=== PATIENT | female | born 1950 | race Caucasian/White ===

== ENCOUNTER 2018-04-30 20:01 | Emergency (ER) | payer MEDICARE, MEDICAID ==
[~2018-04-30] VITALS: Ht 157.4 cm; Wt 83.5 kg
[~2018-04-30 20:01] MED LIST: AMOXICILLIN500 M2 PO; ASPIR 8181 MG PO; BACTRIM DS 8001 TA1 PO; COZAAR50 MG PO; GLIPIZIDE2.5 MG PO; GLIPIZIDE5 MG PO; LEVAQUIN750 M1 PO; LOPRESSOR100 MG PO; METFORMIN500 MG PO; METOPROLOL100 MG PO; NORVASC2.5 MG PO; TESSALON PERLE100 M1 PO; TRAD5TAB1 PO
== END 2018-04-30 20:20 | disposition home or self-care (01) ==
LOC: ED 20:01
DX: H11.31 Conjunctival hemorrhage, right eye (principal); K08.89 Other specified disorders of teeth and supporting structures; E11.9 Type 2 diabetes mellitus without complications; Z88.6 Allergy status to analgesic agent; Z79.82 Long term (current) use of aspirin; Z79.899 Other long term (current) drug therapy

== ENCOUNTER → 2018-07-13 | Outpatient (CLI) | payer MEDICARE, MEDICAID ==
[2018-07-13 10:39] LABS: BILIRUBIN NEGATIVE (NEGATIVE); BLOOD TRACE-LYSED (NEGATIVE); CLARITY SL CLOUDY (CLEAR); COLOR YELLOW (YELLOW); GLUCOSE 3+ (NEGATIVE); KETONE NEGATIVE (NEGATIVE); LEUKO ESTERASE NEGATIVE (NEGATIVE); NITRITE NEGATIVE (NEGATIVE); PH 5.5 (5.0-9.0); UROBILINOGEN 0.2 E.U./dl (0.2-1.0)
[2018-07-13 10:47] LABS: CREATININE 1.32 mg/dL (0.55-1.02); POTASSIUM 4.3 mmol/L (3.5-5.1)
[2018-07-13 10:54] LABS: FREE T4 1.16 ng/dl (0.76-1.46); THYROID STIM HORMONE (HS) 2.41 uIU/ml (0.358-4.75)
[2018-07-13 12:47] LABS: BACTERIA 2+; EPITHELIAL CELLS 20-30
== END | disposition home or self-care (01) ==
LOC: LAB 09:44
PROVIDERS: Internal Medicine
DX: E11.65 Type 2 diabetes mellitus with hyperglycemia (principal); E55.9 Vitamin D deficiency, unspecified; E04.9 Nontoxic goiter, unspecified

== ENCOUNTER 2018-12-11 09:18 | Emergency (ER) | payer MEDICARE, MEDICAID ==
[~2018-12-11] VITALS: Ht 154.9 cm; Wt 85.3 kg
[2018-12-11] MEDS ORDERED: NAPROSYN500 MG PO (10:39)
[2018-12-11] MEDS ORDERED: PREDNISONE50 MG PO (10:44)
== END 2018-12-11 10:44 | disposition home or self-care (01) ==
LOC: ED 09:18
DX: M25.561 Pain in right knee (principal); Z88.5 Allergy status to narcotic agent; Z79.899 Other long term (current) drug therapy; Z79.82 Long term (current) use of aspirin; Z79.84 Long term (current) use of oral hypoglycemic drugs; Z90.710 Acquired absence of both cervix and uterus; Z90.49 Acquired absence of other specified parts of digestive tract

== ENCOUNTER → 2019-11-14 | Outpatient (CLI) | payer MEDICARE, MEDICAID ==
[~2019-11-14] MED LIST changes: +NAPROSYN500 MG PO; +PREDNISONE50 MG PO
[2019-11-14 12:04] LABS: ALBUMIN 3.8 gm/dl (3.1-4.5); CREATININE 1.37 mg/dL (0.55-1.02); POTASSIUM 4.8 mmol/L (3.5-5.1)
[2019-11-15 11:09] LABS: CREATININE,URINE 163.4 mg/dL (Not Estab.)
== END | disposition home or self-care (01) ==
LOC: LAB 11:29
PROVIDERS: Internal Medicine Endocrinology, Diabetes & Metabolism
DX: E11.65 Type 2 diabetes mellitus with hyperglycemia (principal); E55.9 Vitamin D deficiency, unspecified

== ENCOUNTER 2020-10-01 11:07 | Emergency (ER) | payer MEDICARE, MEDICAID ==
[2020-10-01 12:19] LABS: BASO % 0.3 % (0.0-1.0); EOS # 0.4 10*3/uL (0.0-0.4); EOS % 5.6 % (1.0-4.0); HEMATOCRIT 38.6 % (37.0-47.0); LYMPH # 1.1 10*3/uL (1.3-4.4); LYMPH % 16.6 % (27.0-41.0); MEAN CELL VOLUME 91.5 fl (81.0-99.0); MEAN CORPUSCULAR HGB 28.9 pg (27.0-31.0); MEAN CORPUSCULAR HGB CONC 31.6 g/dl (33.0-37.0); MONO # 0.4 10*3/uL (0.1-1.0); MONO % 6.2 % (3.0-9.0); NEUT # 4.8 10*3/uL (2.3-7.9); PLATELET COUNT AUTOMATED 187 10*3/uL (130-400); RED BLOOD COUNT 4.22 10*6/uL (4.10-5.10); RED CELL DISTRI WIDTH 13.1 % (0-14.5); WHITE BLOOD COUNT 6.8 10*3/uL (4.8-10.8)
[2020-10-01 12:34] LABS: ALBUMIN 3.9 gm/dl (3.1-4.5); CREATININE 1.33 mg/dL (0.55-1.02); POTASSIUM 3.9 mmol/L (3.5-5.1); TOTAL PROTEIN 8.2 gm/dL (6.4-8.2)
[2020-10-01 14:37] LABS: ALBUMIN 3.6 gm/dl (3.1-4.5); CREATININE 1.38 mg/dL (0.55-1.02); POTASSIUM 3.8 mmol/L (3.5-5.1); TOTAL PROTEIN 7.6 gm/dL (6.4-8.2)
== END 2020-10-01 15:00 | disposition home or self-care (01) ==
LOC: ED 11:07
PROVIDERS: Nurse Practitioner Family
DX: T50.901A Poisoning by unspecified drugs, medicaments and biological substances, accidental (unintentional), initial encounter (principal); I12.9 Hypertensive chronic kidney disease with stage 1 through stage 4 chronic kidney disease, or unspecified chronic kidney disease; E11.22 Type 2 diabetes mellitus with diabetic chronic kidney disease; N18.30 Chronic kidney disease, stage 3 unspecified; Z88.5 Allergy status to narcotic agent; Z79.899 Other long term (current) drug therapy; Z79.82 Long term (current) use of aspirin

== ENCOUNTER → 2020-12-02 | Outpatient (CLI) | payer MEDICARE, MEDICAID | END | disposition home or self-care (01) | LOC: COVID19 12:13 | PROVIDERS: ATTEND Nurse Practitioner Family | DX: Z20.822 Contact with and (suspected) exposure to COVID-19 (principal) ==

== ENCOUNTER → 2021-01-06 | Outpatient (CLI) | payer MEDICARE, MEDICAID ==
[2021-01-06 11:37] LABS: ALBUMIN 3.7 gm/dl (3.1-4.5); CREATININE 1.5 mg/dL (0.55-1.02); POTASSIUM 4.1 mmol/L (3.5-5.1); TOTAL PROTEIN 8.2 gm/dL (6.4-8.2)
[2021-01-07 09:07] LABS: CREATININE,URINE 180.9 mg/dL (Not Estab.)
== END | disposition home or self-care (01) ==
LOC: LAB 10:46
PROVIDERS: ATTEND Internal Medicine Endocrinology, Diabetes & Metabolism
DX: E11.65 Type 2 diabetes mellitus with hyperglycemia (principal); E55.9 Vitamin D deficiency, unspecified

== ENCOUNTER → 2021-11-22 | Outpatient (CLI) | payer OTHER | END | disposition home or self-care (01) | LOC: RAD 10:48 | PROVIDERS: ATTEND Nurse Practitioner Family | DX: I51.7 Cardiomegaly (principal); R05.9 Cough, unspecified; R09.81 Nasal congestion; Z20.822 Contact with and (suspected) exposure to COVID-19; M41.84 Other forms of scoliosis, thoracic region ==

== ENCOUNTER → 2021-12-06 | Outpatient (CLI) | payer OTHER | END | disposition home or self-care (01) | LOC: CARD 00:03 | PROVIDERS: ATTEND Nurse Practitioner Family | DX: I51.7 Cardiomegaly (principal); R05.9 Cough, unspecified; Z20.822 Contact with and (suspected) exposure to COVID-19 ==

== ENCOUNTER → 2022-04-27 | Outpatient (CLI) | payer OTHER ==
[2022-04-27 11:18] LABS: BILIRUBIN Negative (Negative); BLOOD 1+ (Negative); CLARITY Turbid (Clear); COLOR Yellow (Yellow); GLUCOSE Negative (Negative); KETONE Negative (Negative); LEUKO ESTERASE 3+ (Negative); NITRITE Negative (Negative); PH 5.5 (4.5-8.0); SPECIFIC GRAVITY 1.015 (1.001-1.030)
[2022-04-27 11:33] LABS: CREATININE 1.22 mg/dL (0.55-1.02); POTASSIUM 4.5 mmol/L (3.5-5.1); TOTAL PROTEIN 7.9 gm/dL (6.4-8.2)
[2022-04-27 11:41] LABS: THYROID STIM HORMONE (HS) 1.9 uIU/ml (0.358-4.75)
[2022-04-27 11:43] LABS: BACTERIA 3+; EPITHELIAL CELLS 21-30; RBC 0-2 rbc/hpf (0-2); WBC TNTC wbc/hpf (0-5)
== END ==
LOC: LAB 10:49
PROVIDERS: ATTEND Internal Medicine
DX: E11.9 Type 2 diabetes mellitus without complications (principal); E55.9 Vitamin D deficiency, unspecified; E78.5 Hyperlipidemia, unspecified; E04.9 Nontoxic goiter, unspecified

== ENCOUNTER 2022-09-10 11:33 | Emergency (ER) | payer OTHER | END 2022-09-10 12:10 | disposition left against medical advice (07) | LOC: ED 11:33 | DX: Z53.21 Procedure and treatment not carried out due to patient leaving prior to being seen by health care provider (principal) ==

== ENCOUNTER → 2022-11-01 | Outpatient (CLI) | payer OTHER ==
[2022-11-01 13:10] LABS: BASO % 0.4 % (0.0-1.0); EOS # 0.4 10*3/uL (0.0-0.4); EOS % 4.6 % (1.0-4.0); HEMATOCRIT 42.3 % (37.0-47.0); LYMPH # 1.3 10*3/uL (1.3-4.4); LYMPH % 14.6 % (27.0-41.0); MEAN CELL VOLUME 86.3 fl (81.0-99.0); MEAN CORPUSCULAR HGB 28.8 pg (27.0-31.0); MEAN CORPUSCULAR HGB CONC 33.3 g/dl (33.0-37.0); MEAN PLATELET VOLUME 9.3 fl (9.6-12.3); MONO # 0.7 10*3/uL (0.1-1.0); MONO % 7.7 % (3.0-9.0); NEUT # 6.6 10*3/uL (2.3-7.9); NEUT % 72.3 % (47.0-73.0); PLATELET COUNT AUTOMATED 268 10*3/uL (130-400); WHITE BLOOD COUNT 9.2 10*3/uL (4.8-10.8)
[2022-11-01 13:42] LABS: POTASSIUM 4.2 mmol/L (3.4-5.1); TOTAL PROTEIN 7.9 gm/dL (6.0-8.0)
== END | disposition home or self-care (01) ==
LOC: LAB 12:29
PROVIDERS: ATTEND Nurse Practitioner Family
DX: E11.65 Type 2 diabetes mellitus with hyperglycemia (principal); E55.9 Vitamin D deficiency, unspecified; E78.2 Mixed hyperlipidemia; I10 Essential (primary) hypertension

== ENCOUNTER → 2022-11-10 | Outpatient (CLI) | payer OTHER | END | disposition home or self-care (01) | LOC: RAD 14:41 | PROVIDERS: ATTEND Nurse Practitioner Family | DX: E11.65 Type 2 diabetes mellitus with hyperglycemia (principal); J40 Bronchitis, not specified as acute or chronic; I51.7 Cardiomegaly; M41.84 Other forms of scoliosis, thoracic region ==

== ENCOUNTER → 2023-04-15 | Outpatient (CLI) | payer OTHER ==
[~2023-04-15] MED LIST changes: +HYDROCODONE-AC1 EAC1 PO
[2023-04-15 10:06] LABS: BILIRUBIN Negative (Negative); BLOOD Trace-Intact (Negative); CLARITY Cloudy (Clear); COLOR Yellow (Yellow); GLUCOSE 1+ (Negative); KETONE Negative (Negative); LEUKO ESTERASE 2+ (Negative); NITRITE Negative (Negative); PH 5.5 (4.5-8.0); SPECIFIC GRAVITY 1.015 (1.001-1.030)
[2023-04-15 10:33] LABS: BACTERIA 3+; EPITHELIAL CELLS 16-20; WBC 51-100 wbc/hpf (0-5)
[2023-04-15 10:46] LABS: POTASSIUM 4.4 mmol/L (3.4-5.1); THYROID STIM HORMONE (HS) 1.602 uIU/ml (0.550-4.780); TOTAL PROTEIN 7.4 gm/dL (6.0-8.0)
== END | disposition home or self-care (01) ==
LOC: LAB 09:43
PROVIDERS: ATTEND Internal Medicine
DX: E11.65 Type 2 diabetes mellitus with hyperglycemia (principal); E04.9 Nontoxic goiter, unspecified; E55.9 Vitamin D deficiency, unspecified; E78.5 Hyperlipidemia, unspecified

== ENCOUNTER 2023-04-17 00:39 | Emergency (ER) | payer OTHER ==
[~2023-04-17 00:39] MED LIST changes: -HYDROCODONE-AC1 EAC1 PO
[2023-04-17] MEDS ORDERED: HYDROCODONE-AC1 EAC1 PO (01:55)
== END 2023-04-17 02:18 | disposition home or self-care (01) ==
LOC: ED 00:39
DX: S92.511A Displaced fracture of proximal phalanx of right lesser toe(s), initial encounter for closed fracture (principal); I10 Essential (primary) hypertension; E11.9 Type 2 diabetes mellitus without complications; F41.9 Anxiety disorder, unspecified; Z87.442 Personal history of urinary calculi; Z88.5 Allergy status to narcotic agent; Z90.710 Acquired absence of both cervix and uterus; Z98.890 Other specified postprocedural states; Z90.49 Acquired absence of other specified parts of digestive tract; X58.XXXA Exposure to other specified factors, initial encounter; Y93.89 Activity, other specified; Y92.009 Unspecified place in unspecified non-institutional (private) residence as the place of occurrence of the external cause; Y99.8 Other external cause status

== ENCOUNTER → 2023-05-26 | Outpatient (CLI) | payer OTHER ==
[~2023-05-26] MED LIST changes: +HYDROCODONE-AC1 EAC1 PO
[2023-05-26 11:54] LABS: BASO % 0.4 % (0.0-1.0); EOS # 0.4 10*3/uL (0.0-0.4); EOS % 5.7 % (1.0-4.0); HEMATOCRIT 38.4 % (37.0-47.0); LYMPH # 0.8 10*3/uL (1.3-4.4); LYMPH % 10.8 % (27.0-41.0); MEAN CELL VOLUME 87.7 fl (81.0-99.0); MEAN CORPUSCULAR HGB CONC 33.1 g/dl (33.0-37.0); MEAN PLATELET VOLUME 9.1 fl (9.6-12.3); MONO # 0.7 10*3/uL (0.1-1.0); MONO % 9.2 % (3.0-9.0); NEUT # 5.5 10*3/uL (2.3-7.9); NEUT % 73.5 % (47.0-73.0); PLATELET COUNT AUTOMATED 232 10*3/uL (130-400); RED BLOOD COUNT 4.38 10*6/uL (4.10-5.10); RED CELL DISTRI WIDTH 13.1 % (0-14.5); WHITE BLOOD COUNT 7.5 10*3/uL (4.8-10.8)
[2023-05-26 12:39] LABS: POTASSIUM 4.3 mmol/L (3.4-5.1); TOTAL PROTEIN 7.5 gm/dL (6.0-8.0)
== END | disposition home or self-care (01) ==
LOC: LAB 10:58
PROVIDERS: ATTEND Nurse Practitioner Family
DX: I10 Essential (primary) hypertension (principal); E11.65 Type 2 diabetes mellitus with hyperglycemia; E55.9 Vitamin D deficiency, unspecified; E78.2 Mixed hyperlipidemia

== ENCOUNTER → 2023-09-05 | Outpatient (CLI) | payer OTHER, MEDICAID ==
[2023-09-05 09:46] LABS: BASO # 0.1 10*3/uL (0.0-0.1); BASO % 0.6 % (0.0-1.0); EOS # 0.4 10*3/uL (0.0-0.4); EOS % 4.3 % (1.0-4.0); HEMATOCRIT 40.4 % (37.0-47.0); LYMPH # 1.4 10*3/uL (1.3-4.4); LYMPH % 16.4 % (27.0-41.0); MEAN CELL VOLUME 88.6 fl (81.0-99.0); MEAN CORPUSCULAR HGB 29.6 pg (27.0-31.0); MEAN CORPUSCULAR HGB CONC 33.4 g/dl (33.0-37.0); MEAN PLATELET VOLUME 8.8 fl (9.6-12.3); MONO # 0.6 10*3/uL (0.1-1.0); MONO % 7.4 % (3.0-9.0); NEUT # 6.1 10*3/uL (2.3-7.9); NEUT % 70.7 % (47.0-73.0); PLATELET COUNT AUTOMATED 215 10*3/uL (130-400); RED BLOOD COUNT 4.56 10*6/uL (4.10-5.10); RED CELL DISTRI WIDTH 13.2 % (0-14.5); WHITE BLOOD COUNT 8.6 10*3/uL (4.8-10.8)
[2023-09-05 09:48] LABS: BILIRUBIN Negative (Negative); BLOOD 1+ (Negative); CLARITY Cloudy (Clear); COLOR Yellow (Yellow); GLUCOSE 3+ (Negative); KETONE Negative (Negative); LEUKO ESTERASE 2+ (Negative); NITRITE Negative (Negative); PH 5.5 (4.5-8.0); UROBILINOGEN 0.2 E.U./dl (0.0-1.0)
[2023-09-05 10:04] LABS: BACTERIA 1+; WBC 41-50 wbc/hpf (0-5)
[2023-09-05 10:23] LABS: POTASSIUM 4.5 mmol/L (3.4-5.1); TOTAL PROTEIN 7.7 gm/dL (6.0-8.0)
[2023-09-05 10:25] LABS: TOTAL PROTEIN 7.6 gm/dL (6.0-8.0)
== END | disposition home or self-care (01) ==
LOC: LAB 09:16
PROVIDERS: Nurse Practitioner Family; ATTEND Internal Medicine
DX: I12.9 Hypertensive chronic kidney disease with stage 1 through stage 4 chronic kidney disease, or unspecified chronic kidney disease (principal); E11.22 Type 2 diabetes mellitus with diabetic chronic kidney disease; N18.9 Chronic kidney disease, unspecified; E11.65 Type 2 diabetes mellitus with hyperglycemia; E55.9 Vitamin D deficiency, unspecified; E04.9 Nontoxic goiter, unspecified; E78.2 Mixed hyperlipidemia; Z79.899 Other long term (current) drug therapy

== ENCOUNTER → 2023-09-14 | Outpatient (CLI) | payer OTHER, MEDICAID | END | disposition home or self-care (01) | LOC: RAD 10:50 | PROVIDERS: ATTEND Chiropractor | DX: M47.816 Spondylosis without myelopathy or radiculopathy, lumbar region (principal); M41.86 Other forms of scoliosis, lumbar region ==

== ENCOUNTER → 2023-11-15 | Outpatient (CLI) | payer OTHER ==
[2023-11-15 13:24] LABS: BASO % 0.5 % (0.0-1.0); EOS # 0.4 10*3/uL (0.0-0.4); EOS % 4.8 % (1.0-4.0); HEMATOCRIT 40.9 % (37.0-47.0); LYMPH # 1.2 10*3/uL (1.3-4.4); LYMPH % 15.7 % (27.0-41.0); MEAN CELL VOLUME 88.3 fl (81.0-99.0); MEAN CORPUSCULAR HGB 28.1 pg (27.0-31.0); MEAN CORPUSCULAR HGB CONC 31.8 g/dl (33.0-37.0); MEAN PLATELET VOLUME 8.8 fl (9.6-12.3); MONO # 0.5 10*3/uL (0.1-1.0); MONO % 6.8 % (3.0-9.0); NEUT # 5.2 10*3/uL (2.3-7.9); NEUT % 71.7 % (47.0-73.0); PLATELET COUNT AUTOMATED 306 10*3/uL (130-400); RED BLOOD COUNT 4.63 10*6/uL (4.10-5.10); RED CELL DISTRI WIDTH 12.7 % (0-14.5); WHITE BLOOD COUNT 7.3 10*3/uL (4.8-10.8)
[2023-11-15 13:55] LABS: POTASSIUM 4.3 mmol/L (3.4-5.1); URIC ACID 6.3 mg/dL (3.1-7.8)
[2023-11-15 17:49] LABS: BILIRUBIN Negative (Negative); BLOOD 1+ (Negative); CLARITY Clear (Clear); COLOR Yellow (Yellow); GLUCOSE 3+ (Negative); KETONE Negative (Negative); LEUKO ESTERASE Trace (Negative); NITRITE Negative (Negative); PH 6.5 (4.5-8.0)
[2023-11-15 17:54] LABS: BACTERIA 2+; RBC 16-20 rbc/hpf (0-2)
[2023-11-15 17:56] LABS: URINE CREATININE RANDOM 46.22 mg/dL
[2023-11-16 06:09] LABS: IMMUNOGLOBULIN G, QNT 1210 mg/dL (586-1602); IMMUNOGLOBULIN M, QNT 90 mg/dL (26-217)
[2023-11-16 15:07] LABS: FREE KAPPA LIGHT CHAINS 80.9 mg/L (3.3-19.4); HBSAG Negative (Negative); HEP B CORE AB, IGM Negative (Negative); HEPATITIS C ANTIBODY Non Reactive (Non Reactive)
== END | disposition home or self-care (01) ==
LOC: LAB 12:42
PROVIDERS: ATTEND Internal Medicine Nephrology
DX: I12.9 Hypertensive chronic kidney disease with stage 1 through stage 4 chronic kidney disease, or unspecified chronic kidney disease (principal); E11.22 Type 2 diabetes mellitus with diabetic chronic kidney disease; N18.30 Chronic kidney disease, stage 3 unspecified; Z01.89 Encounter for other specified special examinations; N25.81 Secondary hyperparathyroidism of renal origin; M10.9 Gout, unspecified; R80.9 Proteinuria, unspecified; Z79.899 Other long term (current) drug therapy

== ENCOUNTER 2023-11-30 17:26 | Emergency (ER) | payer OTHER ==
[~2023-11-30] VITALS: Ht 162.5 cm; Wt 88.5 kg
[2023-11-30] MEDS ORDERED: HUMALOG100 UNIT/1 SC (19:52)
[2023-11-30] MEDS ORDERED: ACETAMINOPHEN 325 MG TAB PO ONE (19:55)
[2023-11-30] MEDS ORDERED: MELOXICAM15 MG PO (20:59)
== END 2023-11-30 21:07 | disposition home or self-care (01) ==
LOC: ED 17:26
DX: S83.91XA Sprain of unspecified site of right knee, initial encounter (principal); I10 Essential (primary) hypertension; E11.9 Type 2 diabetes mellitus without complications; F41.9 Anxiety disorder, unspecified; Z87.442 Personal history of urinary calculi; Z88.5 Allergy status to narcotic agent; Z90.710 Acquired absence of both cervix and uterus; Z90.49 Acquired absence of other specified parts of digestive tract; Z98.890 Other specified postprocedural states; W19.XXXA Unspecified fall, initial encounter; Y93.89 Activity, other specified; Y92.89 Other specified places as the place of occurrence of the external cause; Y99.8 Other external cause status

== ENCOUNTER → 2024-02-09 | Outpatient (CLI) | payer OTHER ==
[~2024-02-09] MED LIST changes: +HUMALOG100 UNIT/1 SC; +MELOXICAM15 MG PO
[2024-02-09 11:08] LABS: BILIRUBIN Negative (Negative); BLOOD 2+ (Negative); CLARITY Cloudy (Clear); COLOR Yellow (Yellow); GLUCOSE 3+ (Negative); KETONE Negative (Negative); LEUKO ESTERASE 2+ (Negative); NITRITE Negative (Negative); PH 5.5 (4.5-8.0); SPECIFIC GRAVITY 1.025 (1.001-1.030)
[2024-02-09 11:28] LABS: ALKALINE PHOSPHATASE 41 U/L (46-116); BUN 26 mg/dl (9-23); CHLORIDE 106 mmol/L (98-107); CHOLESTEROL 138 mg/dL (<200); LDL CHOLESTEROL 74 mg/dL (9-159); POTASSIUM 4.5 mmol/L (3.4-5.1); TOTAL PROTEIN 7.8 gm/dL (6.0-8.0); TRIGLYCERIDES 179 mg/dl (<150)
[2024-02-09 11:31] LABS: SGPT/ALT < 7 U/L (5-49)
[2024-02-09 12:42] LABS: BACTERIA 1+; EPITHELIAL CELLS 16-20; RBC 21-30 rbc/hpf (0-2); WBC 41-50 wbc/hpf (0-5)
== END ==
LOC: LAB 10:44
PROVIDERS: ATTEND Internal Medicine
DX: E11.65 Type 2 diabetes mellitus with hyperglycemia (principal); E55.9 Vitamin D deficiency, unspecified; E04.9 Nontoxic goiter, unspecified; E78.5 Hyperlipidemia, unspecified

== ENCOUNTER → 2024-03-11 | Outpatient (CLI) | payer OTHER ==
[2024-03-11 10:32] LABS: BILIRUBIN Negative (Negative); BLOOD 3+ (Negative); CLARITY Turbid (Clear); GLUCOSE 3+ (Negative); KETONE Negative (Negative); LEUKO ESTERASE 2+ (Negative); NITRITE Negative (Negative); PH 5.5 (4.5-8.0); UROBILINOGEN 0.2 E.U./dl (0.0-1.0)
[2024-03-11 10:36] LABS: BASO # 0.1 10*3/uL (0.0-0.1); BASO % 0.7 % (0.0-1.0); EOS # 0.3 10*3/uL (0.0-0.4); EOS % 4.8 % (1.0-4.0); HEMATOCRIT 41.9 % (37.0-47.0); LYMPH # 1.2 10*3/uL (1.3-4.4); LYMPH % 17.1 % (27.0-41.0); MEAN CELL VOLUME 88.6 fl (81.0-99.0); MEAN CORPUSCULAR HGB 28.3 pg (27.0-31.0); MONO # 0.6 10*3/uL (0.1-1.0); MONO % 8.2 % (3.0-9.0); NEUT # 4.9 10*3/uL (2.3-7.9); NEUT % 68.4 % (47.0-73.0); PLATELET COUNT AUTOMATED 289 10*3/uL (130-400); RED BLOOD COUNT 4.73 10*6/uL (4.10-5.10); RED CELL DISTRI WIDTH 13.4 % (0-14.5); WHITE BLOOD COUNT 7.1 10*3/uL (4.8-10.8)
[2024-03-11 10:39] LABS: URINE CREATININE RANDOM 49.68 mg/dL
[2024-03-11 10:53] LABS: RBC 21-30 rbc/hpf (0-2); WBC 31-40 wbc/hpf (0-5)
[2024-03-11 10:54] LABS: BACTERIA 4+; COLOR Red (Yellow)
[2024-03-11 10:57] LABS: POTASSIUM 4.4 mmol/L (3.4-5.1); URIC ACID 7.5 mg/dL (3.1-7.8)
[2024-03-11 10:59] LABS: VITAMIN D, 25-HYDROXY 33.2 ng/mL (30-100)
== END | disposition home or self-care (01) ==
LOC: LAB 09:59
PROVIDERS: ATTEND Internal Medicine Nephrology
DX: E11.22 Type 2 diabetes mellitus with diabetic chronic kidney disease (principal); N18.30 Chronic kidney disease, stage 3 unspecified; M10.9 Gout, unspecified; M25.10 Fistula, unspecified joint

== ENCOUNTER → 2024-03-28 | Outpatient (CLI) | payer OTHER ==
[2024-03-28 10:52] LABS: BASO # 0.1 10*3/uL (0.0-0.1); BASO % 0.8 % (0.0-1.0); EOS # 0.4 10*3/uL (0.0-0.4); EOS % 4.4 % (1.0-4.0); HEMATOCRIT 42.5 % (37.0-47.0); LYMPH # 1.2 10*3/uL (1.3-4.4); LYMPH % 14.9 % (27.0-41.0); MEAN CELL VOLUME 87.6 fl (81.0-99.0); MEAN CORPUSCULAR HGB 28.7 pg (27.0-31.0); MEAN CORPUSCULAR HGB CONC 32.7 g/dl (33.0-37.0); MEAN PLATELET VOLUME 9.2 fl (9.6-12.3); MONO # 0.7 10*3/uL (0.1-1.0); MONO % 8.7 % (3.0-9.0); NEUT # 5.6 10*3/uL (2.3-7.9); NEUT % 70.6 % (47.0-73.0); PLATELET COUNT AUTOMATED 272 10*3/uL (130-400); RED BLOOD COUNT 4.85 10*6/uL (4.10-5.10); RED CELL DISTRI WIDTH 13.7 % (0-14.5); WHITE BLOOD COUNT 7.9 10*3/uL (4.8-10.8)
[2024-03-28 10:53] LABS: BILIRUBIN Negative (Negative); BLOOD 3+ (Negative); CLARITY Cloudy (Clear); COLOR Orange (Yellow); GLUCOSE 3+ (Negative); KETONE Negative (Negative); LEUKO ESTERASE 2+ (Negative); NITRITE Negative (Negative); PH 5.5 (4.5-8.0); SPECIFIC GRAVITY 1.025 (1.001-1.030)
[2024-03-28 11:01] LABS: URINE CREATININE RANDOM 63.46 mg/dL
[2024-03-28 11:03] LABS: URINE CREATININE RANDOM 63.49 mg/dL
[2024-03-28 11:16] LABS: ALKALINE PHOSPHATASE 45 U/L (46-116); BUN 24 mg/dl (9-23); CHLORIDE 107 mmol/L (98-107); CHOLESTEROL 146 mg/dL (<200); LDL CHOLESTEROL 79 mg/dL (9-159); POTASSIUM 4.4 mmol/L (3.4-5.1); TOTAL PROTEIN 7.6 gm/dL (6.0-8.0); TRIGLYCERIDES 180 mg/dl (<150)
[2024-03-28 11:21] LABS: RBC TNTC rbc/hpf (0-2); WBC TNTC wbc/hpf (0-5)
[2024-03-28 11:23] LABS: SGPT/ALT < 7 U/L (5-49)
== END | disposition home or self-care (01) ==
LOC: LAB 10:16
PROVIDERS: Nurse Practitioner Family; ATTEND Nurse Practitioner Family
DX: I12.9 Hypertensive chronic kidney disease with stage 1 through stage 4 chronic kidney disease, or unspecified chronic kidney disease (principal); E11.22 Type 2 diabetes mellitus with diabetic chronic kidney disease; N18.30 Chronic kidney disease, stage 3 unspecified; E78.2 Mixed hyperlipidemia; E11.65 Type 2 diabetes mellitus with hyperglycemia; Z79.4 Long term (current) use of insulin

== ENCOUNTER → 2024-04-17 | Outpatient (CLI) | payer OTHER | END | disposition home or self-care (01) | LOC: RAD 11:23 | PROVIDERS: ATTEND Nurse Practitioner Family | DX: M25.551 Pain in right hip (principal) ==

== ENCOUNTER → 2024-05-15 | Outpatient (CLI) | payer OTHER | END | disposition home or self-care (01) | LOC: LAB 17:39 | PROVIDERS: ATTEND Nurse Practitioner Family | DX: R30.0 Dysuria (principal); E11.9 Type 2 diabetes mellitus without complications ==

== ENCOUNTER → 2024-07-11 | Outpatient (CLI) | payer OTHER ==
[2024-07-11 11:16] LABS: BILIRUBIN Negative (Negative); BLOOD 3+ (Negative); CLARITY Turbid (Clear); COLOR Yellow (Yellow); GLUCOSE 3+ (Negative); KETONE Negative (Negative); LEUKO ESTERASE 2+ (Negative); NITRITE Negative (Negative); PH 5.5 (4.5-8.0); SPECIFIC GRAVITY 1.025 (1.001-1.030)
[2024-07-11 11:30] LABS: ALKALINE PHOSPHATASE 41 U/L (46-116); BUN 24 mg/dl (9-23); CHLORIDE 106 mmol/L (98-107); CHOLESTEROL 138 mg/dL (<200); LDL CHOLESTEROL 67 mg/dL (9-159); POTASSIUM 4.6 mmol/L (3.4-5.1); TOTAL PROTEIN 7.5 gm/dL (6.0-8.0); TRIGLYCERIDES 204 mg/dl (<150)
[2024-07-11 11:31] LABS: SGPT/ALT < 7 U/L (5-49)
[2024-07-11 12:18] LABS: BACTERIA 1+; RBC TNTC rbc/hpf (0-2); WBC 16-20 wbc/hpf (0-5)
== END | disposition home or self-care (01) ==
LOC: LAB 10:33
PROVIDERS: ATTEND Internal Medicine
DX: E11.65 Type 2 diabetes mellitus with hyperglycemia (principal); E55.9 Vitamin D deficiency, unspecified; E78.5 Hyperlipidemia, unspecified

== ENCOUNTER 2024-10-05 09:50 | Emergency (ER) | payer OTHER ==
[~2024-10-05] VITALS: Ht 157.4 cm; Wt 88.2 kg
[2024-10-05] MEDS ORDERED: ATORVASTATIN CA10 M1 PO (10:14)
[2024-10-05] MEDS ORDERED: FENOFIBRATE145 M1 PO (10:14)
[2024-10-05] MEDS ORDERED: TRESIBA FL200 UNIT/1 SQ (10:14)
[2024-10-05] MEDS ORDERED: FARXIGA10 M1 PO (10:14)
[2024-10-05] MEDS ORDERED: Ondansetron Hydrochloride 4 MG TAB PO ONE (10:30)
[2024-10-05 10:41] LABS: BILIRUBIN Negative (Negative); BLOOD 2+ (Negative); CLARITY Clear (Clear); COLOR Yellow (Yellow); GLUCOSE 3+ (Negative); KETONE Negative (Negative); LEUKO ESTERASE 2+ (Negative); NITRITE Negative (Negative); PH 6.5 (4.5-8.0)
[2024-10-05] MEDS ORDERED: Sulfamethoxazole/Trimethopri 1 TAB TAB PO ONE (11:20)
[2024-10-05] MEDS ORDERED: SEPTDS PO (11:21)
[2024-10-05 11:29] LABS: BACTERIA 3+; RBC TNTC rbc/hpf (0-2); WBC 31-40 wbc/hpf (0-5)
== END 2024-10-05 11:38 | disposition home or self-care (01) ==
LOC: ED 09:50
PROVIDERS: Emergency Medicine
DX: N39.0 Urinary tract infection, site not specified (principal); R11.0 Nausea; I10 Essential (primary) hypertension; E11.9 Type 2 diabetes mellitus without complications; F41.9 Anxiety disorder, unspecified; Z87.442 Personal history of urinary calculi; Z88.5 Allergy status to narcotic agent; Z90.710 Acquired absence of both cervix and uterus; Z90.49 Acquired absence of other specified parts of digestive tract; Z98.890 Other specified postprocedural states

== ENCOUNTER → 2024-11-04 | Outpatient (CLI) | payer OTHER ==
[~2024-11-04] MED LIST changes: +ATORVASTATIN CA10 M1 PO; +FARXIGA10 M1 PO; +FENOFIBRATE145 M1 PO; +SEPTDS PO; +TRESIBA FL200 UNIT/1 SQ
[2024-11-04 11:12] LABS: BILIRUBIN Negative (Negative); BLOOD 2+ (Negative); CLARITY Cloudy (Clear); COLOR Yellow (Yellow); GLUCOSE 3+ (Negative); KETONE Negative (Negative); LEUKO ESTERASE 2+ (Negative); NITRITE Negative (Negative); PH 5.5 (4.5-8.0)
[2024-11-04 11:46] LABS: BACTERIA 2+; WBC 51-100 wbc/hpf (0-5)
[2024-11-04 11:51] LABS: ALKALINE PHOSPHATASE 39 U/L (46-116); BUN 26 mg/dl (9-23); CHLORIDE 104 mmol/L (98-107); CHOLESTEROL 119 mg/dL (<200); LDL CHOLESTEROL 57 mg/dL (9-159); POTASSIUM 5.2 mmol/L (3.4-5.1); TOTAL PROTEIN 7.5 gm/dL (6.0-8.0); TRIGLYCERIDES 145 mg/dl (<150)
[2024-11-04 11:54] LABS: ALKALINE PHOSPHATASE 39 U/L (46-116); TOTAL PROTEIN 7.5 gm/dL (6.0-8.0)
[2024-11-04 11:55] LABS: SGPT/ALT < 7 U/L (5-49)
[2024-11-04 11:56] LABS: SGPT/ALT < 7 U/L (5-49)
== END | disposition home or self-care (01) ==
LOC: LAB 09:54
PROVIDERS: Nurse Practitioner Family; ATTEND Internal Medicine
DX: I10 Essential (primary) hypertension (principal); E11.65 Type 2 diabetes mellitus with hyperglycemia; E55.9 Vitamin D deficiency, unspecified; E78.2 Mixed hyperlipidemia; E04.9 Nontoxic goiter, unspecified

== ENCOUNTER → 2025-02-26 | Outpatient (CLI) | payer OTHER, MEDICAID ==
[2025-02-26 12:42] LABS: BASO % 0.6 % (0.0-1.0); EOS # 0.4 10*3/uL (0.0-0.4); EOS % 5.7 % (1.0-4.0); HEMATOCRIT 43.7 % (37.0-47.0); MEAN CELL VOLUME 92.2 fl (81.0-99.0); MEAN CORPUSCULAR HGB 28.3 pg (27.0-31.0); MEAN CORPUSCULAR HGB CONC 30.7 g/dl (33.0-37.0); MEAN PLATELET VOLUME 9.8 fl (9.6-12.3); MONO # 0.5 10*3/uL (0.1-1.0); MONO % 7.6 % (3.0-9.0); NEUT # 4.6 10*3/uL (2.3-7.9); NEUT % 66.6 % (47.0-73.0); PLATELET COUNT AUTOMATED 321 10*3/uL (130-400); RED BLOOD COUNT 4.74 10*6/uL (4.10-5.10); RED CELL DISTRI WIDTH 13.2 % (0-14.5)
[2025-02-26 13:00] LABS: POTASSIUM 5.1 mmol/L (3.4-5.1); TOTAL PROTEIN 7.7 gm/dL (6.0-8.0)
== END | disposition home or self-care (01) ==
LOC: RHCWE 08:35
PROVIDERS: ATTEND Nurse Practitioner Family
DX: I12.9 Hypertensive chronic kidney disease with stage 1 through stage 4 chronic kidney disease, or unspecified chronic kidney disease (principal); N18.9 Chronic kidney disease, unspecified; E78.2 Mixed hyperlipidemia; E55.9 Vitamin D deficiency, unspecified; Z76.89 Persons encountering health services in other specified circumstances; Z79.4 Long term (current) use of insulin

== ENCOUNTER 2025-03-05 21:07 | Emergency (ER) | payer OTHER, MEDICAID ==
[~2025-03-05] VITALS: Ht 157.4 cm; Wt 90.3 kg
[2025-03-05] MEDS ORDERED: SODIUM CHLORIDE 0.9% 1,000 ML IV ONE (21:25)
[2025-03-05] MEDS ORDERED: Albuterol Sulf/Ipratropium 3 ML VIAL NEB ONE (21:30)
[2025-03-05] MEDS ORDERED: methylPREDNISolone sod succ 125 MG VIAL IV ONE (21:30)
[2025-03-05 21:40] LABS: BASO % 0.5 % (0.0-1.0); EOS # 0.4 10*3/uL (0.0-0.4); EOS % 4.4 % (1.0-4.0); HEMATOCRIT 40.7 % (37.0-47.0); MEAN CELL VOLUME 89.1 fl (81.0-99.0); MEAN CORPUSCULAR HGB 27.8 pg (27.0-31.0); MEAN CORPUSCULAR HGB CONC 31.2 g/dl (33.0-37.0); MEAN PLATELET VOLUME 9.1 fl (9.6-12.3); MONO # 0.8 10*3/uL (0.1-1.0); MONO % 9.7 % (3.0-9.0); NEUT % 69.7 % (47.0-73.0); PLATELET COUNT AUTOMATED 247 10*3/uL (130-400); RED BLOOD COUNT 4.57 10*6/uL (4.10-5.10); RED CELL DISTRI WIDTH 13.3 % (0-14.5); WHITE BLOOD COUNT 8.6 10*3/uL (4.8-10.8)
[2025-03-05 22:00] LABS: POTASSIUM 4.3 mmol/L (3.4-5.1)
[2025-03-05] MEDS ORDERED: AVPAK AZITHROM250 M1 PO (22:38)
[2025-03-05] MEDS ORDERED: AZITHROMYCIN 250 MG TAB PO ONE (22:40)
== END 2025-03-05 22:49 | disposition home or self-care (01) ==
LOC: ED 21:07
PROVIDERS: Nurse Practitioner Family
DX: J40 Bronchitis, not specified as acute or chronic (principal); I12.9 Hypertensive chronic kidney disease with stage 1 through stage 4 chronic kidney disease, or unspecified chronic kidney disease; E11.22 Type 2 diabetes mellitus with diabetic chronic kidney disease; N18.9 Chronic kidney disease, unspecified; F41.9 Anxiety disorder, unspecified; Z20.822 Contact with and (suspected) exposure to COVID-19; Z79.82 Long term (current) use of aspirin; Z79.4 Long term (current) use of insulin; Z79.899 Other long term (current) drug therapy; Z88.5 Allergy status to narcotic agent; Z90.49 Acquired absence of other specified parts of digestive tract; Z90.710 Acquired absence of both cervix and uterus; Z98.890 Other specified postprocedural states

== ENCOUNTER 2025-03-08 02:07 | Emergency (ER) | payer OTHER, MEDICAID ==
[~2025-03-08] VITALS: Ht 154.9 cm; Wt 90.3 kg
[~2025-03-08 02:07] MED LIST changes: +AVPAK AZITHROM250 M1 PO
[2025-03-08] MEDS ORDERED: Albuterol Sulf/Ipratropium 3 ML VIAL NEB ONE (02:45)
[2025-03-08] MEDS ORDERED: Dexamethasone Sodium Phospha 20 MG/5 ML VIAL IM ONE (02:45)
[2025-03-08] MEDS ORDERED: ALBUTEROL 8 GM INHALER INH ONE (02:45)
[2025-03-08] MEDS ORDERED: Pseudoephedrine Hydrochlorid 30 MG TAB PO ONE (02:45)
[2025-03-08] MEDS ORDERED: PREDNISONE20 M1 PO (02:47)
[2025-03-08] MEDS ORDERED: FLUTICASONE PROPIONATE Nasal 16 Gm spray NAS SCH (10:00)
== END 2025-03-08 02:56 | disposition home or self-care (01) ==
LOC: ED 02:07
DX: J20.9 Acute bronchitis, unspecified (principal); J06.9 Acute upper respiratory infection, unspecified; J45.909 Unspecified asthma, uncomplicated; E66.9 Obesity, unspecified; Z88.5 Allergy status to narcotic agent; Z79.899 Other long term (current) drug therapy; Z79.82 Long term (current) use of aspirin; Z79.84 Long term (current) use of oral hypoglycemic drugs; Z79.4 Long term (current) use of insulin; Z98.890 Other specified postprocedural states; Z90.710 Acquired absence of both cervix and uterus; Z68.30 Body mass index [BMI] 30.0-30.9, adult

== ENCOUNTER 2025-03-11 17:30 | Emergency (ER) | payer OTHER, MEDICAID ==
[~2025-03-11] VITALS: Ht 157.4 cm; Wt 88.5 kg
[~2025-03-11 17:30] MED LIST changes: +PREDNISONE20 M1 PO
[2025-03-13] MEDS ORDERED: GABAPENTIN100 M2 PO (17:42)
== END 2025-03-11 18:46 | disposition home or self-care (01) ==
LOC: ED 17:30
DX: R20.0 Anesthesia of skin (principal); T42.6X5A Adverse effect of other antiepileptic and sedative-hypnotic drugs, initial encounter; I10 Essential (primary) hypertension; E11.9 Type 2 diabetes mellitus without complications; Z79.82 Long term (current) use of aspirin; Z79.899 Other long term (current) drug therapy; Z88.5 Allergy status to narcotic agent; Z90.710 Acquired absence of both cervix and uterus; Z98.890 Other specified postprocedural states; Y92.89 Other specified places as the place of occurrence of the external cause

== ENCOUNTER 2025-04-24 10:43 | Emergency (ER) | payer OTHER, MEDICAID ==
[~2025-04-24] VITALS: Ht 154.9 cm; Wt 85.3 kg
[~2025-04-24 10:43] MED LIST changes: +AMOX-CLAV 875-1 EACH PO; +ATIVAN0.5 MG PO; +CIPRO500 MG/5 M PO; +FARXIGA5 M1 PO; +GABAPENTIN100 M2 PO; +LIPITOR40 MG PO; +METRONIDAZOLE500 M1 PO; +PLAVIX75 M1 PO; +SERTRALINE HYDR50 MG PO; +TYLENOL325 M2 PO
[2025-04-24] MEDS ORDERED: SODIUM CHLORIDE 0.9% 500 ML IV ONE (11:30)
[2025-04-24 11:41] LABS: BASO # 0.0 10*3/uL (0.0-0.1); BASO % 0.5 % (0.0-1.0); EOS # 0.4 10*3/uL (0.0-0.4); EOS % 4.2 % (1.0-4.0); MEAN CELL VOLUME 89.7 fl (81.0-99.0); MEAN CORPUSCULAR HGB 28.3 pg (27.0-31.0); MEAN PLATELET VOLUME 8.9 fl (9.6-12.3); MONO # 0.6 10*3/uL (0.1-1.0); MONO % 6.9 % (3.0-9.0); NEUT # 6.7 10*3/uL (2.3-7.9); NEUT % 79.0 % (47.0-73.0); NUCLEATED RED BLOOD CELL 0.0 % (0.0-0.0); NUCLEATED RED BLOOD CELL 0.0 10*3/uL (0.0-0.0); PLATELET COUNT AUTOMATED 189 10*3/uL (130-400); RED CELL DISTRI WIDTH 14.0 % (0-14.5)
[2025-04-24 12:05] LABS: BUN 15.0 mg/dl (9-23)
[2025-04-24 12:29] LABS: BILIRUBIN Negative (Negative); BLOOD 3+ (Negative); CLARITY Cloudy (Clear); COLOR Red (Yellow); KETONE Negative (Negative); LEUKO ESTERASE 1+ (Negative); NITRITE Negative (Negative); PH 6.0 (4.5-8.0); SPECIFIC GRAVITY 1.015 (1.001-1.030); UROBILINOGEN 0.2 E.U./dl (0.0-1.0)
[2025-04-24 12:43] LABS: RBC TNTC rbc/hpf (0-2)
== END 2025-04-24 15:23 | disposition home or self-care (01) ==
LOC: ED 10:43
PROVIDERS: Emergency Medicine
DX: R31.9 Hematuria, unspecified (principal); D64.9 Anemia, unspecified; I12.9 Hypertensive chronic kidney disease with stage 1 through stage 4 chronic kidney disease, or unspecified chronic kidney disease; E11.22 Type 2 diabetes mellitus with diabetic chronic kidney disease; N18.9 Chronic kidney disease, unspecified; F41.9 Anxiety disorder, unspecified; Z79.82 Long term (current) use of aspirin; Z79.4 Long term (current) use of insulin; Z79.899 Other long term (current) drug therapy; Z88.5 Allergy status to narcotic agent; Z90.49 Acquired absence of other specified parts of digestive tract; Z90.710 Acquired absence of both cervix and uterus; Z98.890 Other specified postprocedural states

== ENCOUNTER 2025-07-01 11:51 | Emergency (ER) | payer OTHER, MEDICAID | END 2025-07-01 14:16 | disposition home or self-care (01) | LOC: ED 11:51 | DX: S20.211A Contusion of right front wall of thorax, initial encounter (principal); S00.93XA Contusion of unspecified part of head, initial encounter; R07.81 Pleurodynia; I12.9 Hypertensive chronic kidney disease with stage 1 through stage 4 chronic kidney disease, or unspecified chronic kidney disease; E11.22 Type 2 diabetes mellitus with diabetic chronic kidney disease; N18.9 Chronic kidney disease, unspecified; F41.9 Anxiety disorder, unspecified; Z90.49 Acquired absence of other specified parts of digestive tract; Z90.710 Acquired absence of both cervix and uterus; Z88.5 Allergy status to narcotic agent; Z98.890 Other specified postprocedural states; W19.XXXA Unspecified fall, initial encounter; Y93.01 Activity, walking, marching and hiking; Y92.89 Other specified places as the place of occurrence of the external cause; Y99.8 Other external cause status ==

== ENCOUNTER → 2025-10-07 | Outpatient (CLI) | payer OTHER, MEDICAID ==
[2025-10-07 13:18] LABS: BILIRUBIN Negative (Negative); BLOOD 3+ (Negative); CLARITY Clear (Clear); COLOR Yellow (Yellow); KETONE Negative (Negative); LEUKO ESTERASE Trace (Negative); NITRITE Negative (Negative); PH 6.0 (4.5-8.0); SPECIFIC GRAVITY 1.020 (1.001-1.030); UROBILINOGEN 0.2 E.U./dl (0.0-1.0)
[2025-10-07 13:27] LABS: BACTERIA 1+; RBC 51-100 rbc/hpf (0-2)
[2025-10-07 13:39] LABS: BUN 24.0 mg/dl (9-23); LDL CHOLESTEROL 40.0 mg/dL (9-159); SGPT/ALT 11.0 U/L (5-49)
== END | disposition home or self-care (01) ==
LOC: LAB 12:50 → US 13:30
PROVIDERS: Internal Medicine; ATTEND Internal Medicine
DX: N28.1 Cyst of kidney, acquired (principal); E11.65 Type 2 diabetes mellitus with hyperglycemia; E55.9 Vitamin D deficiency, unspecified; E04.9 Nontoxic goiter, unspecified; E78.5 Hyperlipidemia, unspecified; R10.A2 Flank pain, left side